=== PATIENT | female | born 1980 | race Caucasian/White ===

== ENCOUNTER 2019-01-10 14:12 | Emergency (ER) | payer OTHER ==
[~2019-01-10] VITALS: Ht 160 cm; Wt 75.3 kg
== END 2019-01-10 17:14 | disposition home or self-care (01) ==
LOC: ER 14:12
DX: S61.521A Laceration with foreign body of right wrist, initial encounter (principal); W25.XXXA Contact with sharp glass, initial encounter; Y93.89 Activity, other specified; Y92.59 Other trade areas as the place of occurrence of the external cause; Y99.8 Other external cause status

== ENCOUNTER 2019-01-17 09:34 | Emergency (ER) | payer OTHER ==
[~2019-01-17] VITALS: Ht 160 cm; Wt 75.3 kg
== END 2019-01-17 11:15 | disposition home or self-care (01) ==
LOC: ER 09:34
DX: Z48.02 Encounter for removal of sutures (principal)